=== PATIENT | female | born 1995 | race Caucasian/White ===

== ENCOUNTER 2024-02-05 13:37 | Emergency (ER) | payer MEDICARE, MEDICAID, SELFPAY ==
[2024-02-05 13:42] VITALS: BP 120/92; PULSE 102; RESP 18; TEMP 36.3; O2SAT 96
--- NOTE | 2024-02-05 14:09 | USCV_ITS ---
Whitley Joy Age: 29 Gender: F : 1995 Exam Date: 02/05/2024 15:30 Ordering Phys: Paula Sidhu Technologist: CT Exam Location: [facility] [place] Indication: left leg pain PROCEDURES: Venous duplex imaging was performed in only the left lower extremity. FINDINGS: limited us, pt cannot tolerate compression in thigh, no dvt is noted or suspected, good phasic flow/augemtation CONCLUSIONS No evidence of left lower extremity DVT. Patient could not tolerate compression. Rio Dietz MD (Electronically Signed) Final Date: 05 February 2024 16:08 S
--- NOTE | 2024-02-05 14:10 | ED_ITS ---
HPI - Extremity Problem General: Chief complaint: Extremity Problem,Nontraumatic Stated complaint: left leg pain Time Seen by Provider: 02/05/24 13:57 Source: patient and family Mode of arrival: ambulatory Limitations: no limitations History of Present Illness: Patient is a 29-year-old female presents to ED today along with family for evaluation of left leg pain. Patient was reportedly seen by her primary care provider earlier today and referred to the emergency department due to a concern for a possible DVT. She reportedly had a cholecystectomy 2 weeks ago. Patient is complaining of pain to the left foot and left anterior leg. She has not noticed any redness. She does feel like the foot and leg are swollen. Denies any injury or trauma. She is continuing to ambulate on the extremity. MD Complaint: extremity pain and extremity swelling Onset (ago): day(s) Pain Consistency: constant Location: left and lower extremity Relieving factors: nothing Exacerbating factors: palpation Associated symptoms: Reports no associated symptoms; Deny chest pain or fever(s) Context: recent surgery/procedure Review of Systems 2 Const: Denies: fever(s) Card: Denies: chest pain, palpitations, edema, lightheadedness, syncope or pre-syncope Resp: Denies: dyspnea Musc: Reports: extremity pain and extremity swelling Neuro: Denies: numbness in extremities, weakness in extremities, sensory changes or difficulty walking [facility] ED PFSH: Social History Current gender identity: Female Female Reproductive History: Date of last menstrual period: 02/03/24 Physical Exam Const: COMMON NORMALS: no acute distress, patient oriented x3 and alert EXAM LIMITATIONS: other limitations (seems to have a baseline cognitive delay) GENERAL APPEARANCE: cooperative NUTRITIONAL APPEARANCE: obese morbidly obese Resp: COMMON NORMALS: normal respiratory effort and clear to auscultation bilaterally AUSCULTATION: clear to auscultation bilaterally Cardio: COMMON NORMALS: regular rate and regular rhythm RATE: regular rate RHYTHM: regular rhythm Extremity: COMMON NORMALS: full ROM and capillary refill normal GENERAL: Yes normal exam except as noted LEFT LOWER EXTREMITY: Yes lower leg and Yes foot & digits OTHER: patient has tenderness to dorsal L foot and anterior L lower leg; swelling difficult to assess due to body habitus; no obvious calf pain/negative Faustina's; NV intact; no erythema/warmth present Neuro: COMMON NORMALS: patient oriented x3, moves all extremities, no focal motor deficits and no sensory deficits noted SENSORIUM/ORIENTATION: Yes alert Skin: COMMON NORMALS: no rashes or lesions noted GENERAL SKIN EXAM: no rashes or lesions noted Course Vital Signs: Vital signs: Vital Signs Temperature 97.4 F L 02/05/24 13:42 Pulse Rate 102 H 02/05/24 13:42 Respiratory Rate 18 02/05/24 13:42 Blood Pressure 120/92 02/05/24 13:42 Pulse Oximetry 96 02/05/24 13:42 Oxygen Delivery Me thod Room Air 02/05/24 13:42 MDM - Extremity (Nontraumatic) Medical Decision Making Per industrial safety and health technician, he did not visualize any DVT the patient's lower extremity. He did report that patient was fairly non-cooperative during exam. Clinically I would have a low suspicion for this. Patient is stable to follow-up with her primary care provider. XR interpretation done by ED provider, pending radiology final review (per US tech-negative study) Discharge Plan Discharge Patient Disposition: Home Clinical Impression: Acute pain of left lower extremity Condition: Stable Prescriptions: No Action methylphenidate HCl [Concerta] 54 mg tablet extended release 24hr 54 mg PO DAILY citalopram 20 mg tablet 20 mg PO DAILY Discharge Orders: Discharge ED (Routine); Ordered 02/05/24 Ordered By: Paula Sidhu Referrals: FRIEND,KIRA Pugh [Primary Care Provider] - Activity Restrictions/Additional Instructions: As we discussed patient's ultrasound did not reveal any evidence for a blood clot/DVT. She can continue to follow-up with her primary care provider if leg pain persists. Coding Level of Care Code ED Mortar Worker for Demetri Foster
[2024-02-05 15:55] VITALS: BP 121/81; PULSE 93; O2SAT 96
== END 2024-02-05 15:56 | disposition home or self-care (01) ==
PROVIDERS: Emergency Provider Physician Assistant; PCP Nurse Practitioner Family
DX: M79.605 Pain in left leg (principal)
CPT/HCPCS: 93971; 99284

== ENCOUNTER → 2024-08-20 13:39 | Outpatient (BNVA) | payer MEDICARE, MEDICAID, SELFPAY | PROVIDERS: PCP Nurse Practitioner Family; Referring Provider Nurse Practitioner Family; Visit Provider Student in an Organized Health Care Education/Training Program | DX: R10.9 Unspecified abdominal pain (principal); R12 Heartburn; Z90.49 Acquired absence of other specified parts of digestive tract | CPT/HCPCS: 99204 ==

== ENCOUNTER 2024-10-15 07:58 | Day surgery (SDC) | payer MEDICARE, MEDICAID, SELFPAY ==
[2024-10-15 08:23] VITALS: BP 137/103; PULSE 89; RESP 16; TEMP 36.1; O2SAT 94
[2024-10-15] MEDS: sodium chloride 0.9% 500 ML 15 ML IV (08:33)
[2024-10-15 08:37] LABS: OR HCG Qualitative Urine Negative (Negative)
--- NOTE | 2024-10-15 08:56 | ANES.PREANE2 ---
Pre-Anesthetic Assessment Height/Weight: Height 5 ft 3 in Weight 260 lb Temp Pulse Resp BP Pulse Ox O2 Del Method 97 F L 89 16 137/103 94 Room Air 10/15/24 08:23 10/15/24 08:23 10/15/24 08:23 10/15/24 08:23 10/15/24 08:23 10/15/24 08:23 Preop Diagnosis: GERD Operation Date: 10/15/24 09:30 Proposed Procedures p EGD - 81492, R10.9(Not Applicable) - Gomez Torres MD Was Beta Eliane taken within 24 hours: N/A Was Clonidine taken within 24 hours: N/A Last intake: Intake Last Liquid Date 10/14/24 Last Liquid Time 20:00 Last Solid Date 10/14/24 Last Solid Time 12:00 Social No alcohol and No tobacco Exam alert, oriented x 3, clear to auscultation bilaterally and regular rate & rhythm Airway Submandibular: within normal limits Cervical ROM: within normal limits Mallampati: Class III Dentition: full Anesthetic Plan ASA status: 3 Anesthesia: MAC Other: No prior issues with anesthesia NPO since yesterday BMI 46 ADHD on methylphenidate GERD on Protonix Denies any pulmonary or cardiac issues METs greater than 4 Plan for MAC anesthetic Medications/Allergies Home Medications Medication Instructions Recorded Confirmed Last Taken Type citalopram 20 mg tablet 20 mg PO DAILY 06/28/20 10/15/24 10/15/24 History methylphenidate HCl 54 mg 54 mg PO DAILY 06/28/20 10/15/24 10/15/24 History tablet,extended release 24 hr (Concerta) cetirizine 10 mg tablet 10 mg PO DAILY PRN Allergy Symptoms 08/20/24 10/15/24 10/14/24 History norgestimate 0.18 mg/0.215 mg/0.25 1 tab PO DAILY 08/20/24 10/15/24 10/15/24 History mg-ethinyl estradiol 25 mcg tablet ([id number]) pantoprazole 40 mg tablet,delayed 40 mg PO BID 6 weeks #84 tabs 08/20/24 10/15/24 10/14/24 Rx release (Protonix) sucralfate 100 mg/mL oral 10 ml PO BID 8 weeks #1,120 mL 08/20/24 10/15/24 10/14/24 Rx suspension Allergies Allergy/AdvReac Type Severity Reaction Status Date / Time hydrocodone Allergy ALGY-Difficulty Verified 08/24/24 10:14 Breathing Current Medications Generic Name Dose Route Start Last Admin Trade Name Freq PRN Reason Stop Dose Admin Sodium Chloride 500 mls @ 15 mls/hr 10/15/24 08:07 10/15/24 08:33 Sodium Chloride 0.9% IV 10/16/24 08:06 15 mls/hr .Q24H PRN Administration COLONOSCOPY FLUIDS PFSH Anesthesia Family History (Updated 08/20/24 @ 13:[address]) Father Heart disease Mother Cancer breast Social History (Updated 08/20/24 @ 13:[address]) Smoking and tobacco/nicotine status: never used tobacco/nicotine Alcohol intake: never Current gender identity: Female Data Anesthesia Cardiac Studies: No Data to Display
--- NOTE | 2024-10-15 09:27 | W.PM.OPSFHP ---
Same Day Surgery H&P Indication for Procedure/HPI DATE OF PROCEDURE: October 15, 2024 CHIEF COMPLAINT/INDICATIONFOR SURGICAL PROCEDURE: heartburn PREOP DIAGNOSIS: GERD PLANNED PROCEDURE: Operation Date: 10/15/24 09:30 Proposed Procedures p EGD - 00672, R10.9(Not Applicable) - Gomez Torres MD Medications/Allergies* Home Medications Medication Instructions Recorded Confirmed Type citalopram 20 mg tablet 20 mg PO DAILY 06/28/20 10/15/24 History methylphenidate HCl 54 mg 54 mg PO DAILY 06/28/20 10/15/24 History tablet,extended release 24 hr (Concerta) cetirizine 10 mg tablet 10 mg PO DAILY PRN Allergy Symptoms 08/20/24 10/15/24 History norgestimate 0.18 mg/0.215 mg/0.25 1 tab PO DAILY 08/20/24 10/15/24 History mg-ethinyl estradiol 25 mcg tablet ([id number]) Allergies/Adverse Reactions Allergy/AdvReac Type Severity Reaction Status Date / Time hydrocodone Allergy ALGY-Difficulty Verified 08/24/24 10:14 Breathing Current Medications: Generic Name Dose Route Start Last Admin Trade Name Freq PRN Reason Stop Dose Admin Sodium Chloride 500 mls @ 15 mls/hr 10/15/24 08:07 10/15/24 08:33 Sodium Chloride 0.9% IV 10/16/24 08:06 15 mls/hr .Q24H PRN Administration COLONOSCOPY FLUIDS Pertinent History/Comorbid Conditions* Family History (Updated 08/20/24 @ 13:49 by DIONTE Davidson) Heart disease Father Cancer Mother breast Social History Smoking and tobacco/nicotine status: never used tobacco/nicotine Alcohol intake: never Current gender identity: Female Pertinent Exam Findings alert, oriented x 3, clear to auscultation bilaterally, regular rate & rhythm and procedure specific exam findings abdomen soft, nt, nd Recommendations Surgery/Procedure today Coding Level of Care Code Acute Code for Chg Fwd
[2024-10-15 09:48] VITALS: BP 150/72; PULSE 84; RESP 16; O2SAT 97
[2024-10-15 10:01] VITALS: BP 149/106; PULSE 83; RESP 18; O2SAT 98
--- NOTE | 2024-10-15 10:32 | ANE.PACU2 ---
Inpatient post-anesthesia follow up: Airway intact: Yes Vital signs: Temperature 97 F Pulse Rate 83 Respiratory Rate 18 Blood Pressure 149/106 Pulse Oximetry 98 Oxygen Delivery Me thod Room Air Oxygen Flow Rate Fraction of Inspir ed Oxygen Hydration adequate: Yes Nausea and vomiting: No Pain level: 1 Mental status: Baseline
== END 2024-10-15 10:32 | disposition home or self-care (01) ==
PROVIDERS: Student in an Organized Health Care Education/Training Program; Visit Provider Student in an Organized Health Care Education/Training Program
PROC: 0DJ08ZZ Inspection of Upper Intestinal Tract, Via Natural or Artificial Opening Endoscopic (ICD-10-PCS; principal; 2024-10-15 09:30)
DX: K21.9 Gastro-esophageal reflux disease without esophagitis (principal); K29.50 Unspecified chronic gastritis without bleeding; F90.9 Attention-deficit hyperactivity disorder, unspecified type
CPT/HCPCS: 43239; 81025; 88305; J2704; J3490; J7040

== ENCOUNTER → 2024-11-05 10:44 | Outpatient (BNVA) | payer MEDICARE, MEDICAID, SELFPAY | PROVIDERS: PCP Family Medicine; Visit Provider Student in an Organized Health Care Education/Training Program | DX: Z09 Encounter for follow-up examination after completed treatment for conditions other than malignant neoplasm (principal) | CPT/HCPCS: 99213 ==